=== PATIENT | female | born 1980 | race Caucasian/White ===

== ENCOUNTER → 2016-11-02 | Outpatient (CLI) | payer BC ==
[~2016-11-02] MED LIST: FRCT/ PO; IBUP-1277 PO; MULTTAB58 PO; RIZA10TA18 PO; TOPI100T45 PO; TYLOTC500 PO; maxalt PO
== END | disposition home or self-care (01) ==
LOC: C.PAPS 10:29
PROVIDERS: ATTEND Obstetrics & Gynecology
DX: Z01.419 Encounter for gynecological examination (general) (routine) without abnormal findings (principal)

== ENCOUNTER → 2016-11-11 | Outpatient (CLI) | payer BC ==
[2016-11-11 12:14] LABS: HEMATOCRIT 42.2 % (37-47); MEAN CELL VOLUME 80.5 fL (80-100); MEAN CORPUSCULAR HEMOGLOBIN 27.9 pg (25-34); MEAN CORPUSCULAR HGB CONC 34.6 g/dl (32-36); MEAN PLATELET VOLUME 11.5 fL (7.4-10.4); PLATELET COUNT 186 K/uL (130-400); RED BLOOD COUNT 5.24 M/uL (4.2-5.4); WHITE BLOOD COUNT 6.12 K/uL (4.8-10.8)
== END | disposition home or self-care (01) ==
LOC: C.LAB1850 11:01
PROVIDERS: ATTEND Obstetrics & Gynecology
DX: N94.6 Dysmenorrhea, unspecified (principal)

== ENCOUNTER → 2017-11-02 | Outpatient (CLI) | payer BC ==
--- NOTE | 2017-11-02 10:06 | DIAGNOSTIC IMAGING REPORT ---
R FOOT MIN 3 VIEWS ROUTINE CLINICAL HISTORY: Right foot pain. Possible right great toe infection. COMPARISON: None FINDINGS: Alignment of the right foot is anatomic. There is no fracture. There is apparent slight subluxation of the proximal phalanx with respect to the right first metatarsal which is probably within normal limits. Note is made of a 7 mm subchondral lucent focus with surrounding sclerosis within the right first metatarsal head. There is mild osteophytosis of the right first metatarsophalangeal joint with suspected mild joint space narrowing. IMPRESSION: 1. 7 mm subchondral lucent focus with surrounding sclerosis within the right first metatarsal head which is nonspecific but favors an osteochondral abnormality/lesion. 2. 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 2. No acute fracture. Electronically signed by: Curt Fall M.D. 11/02/2017 10:05 AM Dictated Date/Time: 11/02/2017 10:00 AM
== END | disposition home or self-care (01) ==
LOC: C.RAD1850 09:48
PROVIDERS: ATTEND Physician Assistant Medical
DX: M79.671 Pain in right foot (principal); M19.071 Primary osteoarthritis, right ankle and foot

== ENCOUNTER → 2017-11-13 | Outpatient (CLI) | payer BC | END | disposition home or self-care (01) | LOC: C.LABSPEC 17:21 | PROVIDERS: ATTEND Podiatrist Foot & Ankle Surgery | DX: L60.0 Ingrowing nail (principal) ==